=== PATIENT | male | born 1955 | race Caucasian/White ===

== ENCOUNTER 2018-06-14 03:59 | Emergency (ER) | payer MEDICARE, MEDICAID ==
[~2018-06-14] VITALS: Ht 182.9 cm; Wt 72.7 kg
[~2018-06-14 03:59] MED LIST: MORP30TA PO; OXCA600T5 PO
[2018-06-14] MEDS ORDERED: naproxen 500mg tablet PO ONE (04:30)
[2018-06-14] MEDS ORDERED: NAPR-56 PO (04:32)
[2018-06-14] MEDS: HYDROcodone/acetaminophen 10/325mg tab PO ONE ×2 (04:53→05:27)
[2018-06-14] MEDS ORDERED: normal saline 1000ML IV soln IVB ONE ×2 (05:05→06:05)
[2018-06-14] MEDS ORDERED: ondansetron/PF 4mg/2ml inj IV ONE (05:10)
[2018-06-14] MEDS: diatr meglu/diatrizoate 30ml oral sol.-(3 dose) bottle PO SCH ×3 (05:27→08:03)
[2018-06-14 05:35] LABS: BASOPHILS % (AUTO) 0.3 % (0-1); EOSINOPHILS % (AUTO) 0 % (0-6); HEMATOCRIT 54.6 % (42.0-52.0); LYMPHOCYTES # (AUTO) 0.8 X10'3 (1.1-4.8); LYMPHOCYTES % (AUTO) 7.5 % (21-51); MEAN CORPUSCULAR HEMOGLOBIN 32.2 PG (27.0-31.0); MEAN CORPUSCULAR HGB CONC 34.1 % (33.0-36.5); MEAN CORPUSCULAR VOLUME 94.5 FL (78-98); MEAN PLATELET VOLUME 6.3 FL (7.4-10.4); MONOCYTES # (AUTO) 0.5 X10'3 (0-0.9); MONOCYTES % (AUTO) 4.9 % (2-12); NEUTROPHILS # (AUTO) 9.4 X10'3 (1.8-7.7); NEUTROPHILS % (AUTO) 87.3 % (42-75); PLATELET COUNT 302 X10'3 (140-440); RED BLOOD COUNT 5.78 X10'6 (4.70-6.10); RED CELL DISTRIBUTION WIDTH 12.7 % (11.5-14.5); WHITE BLOOD COUNT 10.8 X10'3 (4.5-11.0)
[2018-06-14 05:42] LABS: HEMOGLOBIN 18.6 g/dl (14.0-17.9)
[2018-06-14 05:49] LABS: ALANINE AMINOTRANSFERASE 48 U/L (12-78); ALBUMIN/GLOBULIN RATIO 1.2 (1.1-1.5); ALKALINE PHOSPHATASE 136 IU/L (46-116); ANION GAP 16 (8-16); ASPARTATE AMINO TRANSFERASE 31 U/L (10-37); BILIRUBIN,TOTAL 0.8 MG/DL (0.1-1.0); BLOOD UREA NITROGEN 18 MG/DL (7-18); BUN/CREATININE RATIO 10.2 (5.4-32.0); CALCIUM 9.8 MG/DL (8.5-10.1); CHLORIDE 83 MMOL/L (99-107); CREATININE 1.76 MG/DL (0.60-1.10); ETHANOL < 0.010 GM/DL (0.0-0.010); GLUCOSE 114 MG/DL (70-104); LIPASE 230 U/L (73-393); MAGNESIUM 1.9 MG/DL (1.5-2.4); SODIUM 123 MMOL/L (135-145); TOTAL PROTEIN 9.2 G/DL (6.4-8.2); eGFR 39 ML/MIN
[2018-06-14 05:50] LABS: POTASSIUM 3.4 MMOL/L (3.5-5.1)
[2018-06-14 06:33] VITALS: BP 129/88
[2018-06-14] MEDS ORDERED: HYDROmorphone 1 mg/ml syringe IV ONE (07:00)
== END 2018-06-14 09:11 | disposition home or self-care (01) ==
LOC: ER 04:00
DX: G89.29 Other chronic pain (principal); R10.12 Left upper quadrant pain; F17.210 Nicotine dependence, cigarettes, uncomplicated; F12.90 Cannabis use, unspecified, uncomplicated; Z56.0 Unemployment, unspecified
CPT/HCPCS: 36415; 74018; 74176; 80053; 80320; 83690; 83735; 85025; 96374; 96375; 99284; J1170; J2405; J7030; Q9963